=== PATIENT | female | born 1965 | race Hispanic/Latino ===

== ENCOUNTER 2017-08-08 13:06 | Emergency (ER) | payer BC ==
[2017-08-08 13:16] VITALS: BMI 25.7
[2017-08-08 13:23] VITALS: BP 120/75; RESP 18; O2SAT 97
--- NOTE | 2017-08-08 13:28 | ED PDOC ---
Arrival/HPI - General Chief Complaint: Chest Pain Time Seen by Provider: 08/08/17 13:27 Historian: Patient - History of Present Illness Narrative History of Present Illness (Text): 08/08/17 13:28 A 51 year old female, whose past medical history includes appendectomy and tonsillectomy, sent into the emergency department by PMD for intermittent midsternal chest pain since this morning. Patient describes her pain as a cramping sensation which radiates towards her back and lasts 1-2 minutes at a time. pt states pain is 5/10 at most; Patient is currently asymptomatic and denies any discomfort. She reports dealing with some stress at home. Patient denies any fever, chills, nausea, vomiting, abdominal pain, shortness of breath , syncope, headache, dizziness or any other complaints. pt was seen by dr Dyer in the office prior to ED arrival, directed to come to ED for eval and likely admission PMD: Dr. Dyer Time/Duration: Other (this morning) Symptom Course: Intermittent Quality: Cramping Severity Level: Moderate Context: Home, Work Past Medical History - Provider Review Nursing Documentation Reviewed: Yes - Travel History Have you recently traveled outside [place] w/in the past 3 mons?: No - Past History Past History: No Previous - Infectious Disease Hx of Infectious Diseases: None - Reproductive Menopause: Yes - Psychiatric Hx Substance Use: No Family/Social History - Physician Review Nursing Documentation Reviewed: Yes Family/Social History: CAD/NC Smoking Status: Never Smoked Hx Alcohol Use: No Hx Substance Use: No Hx Substance Use Treatment: No Allergies/Home Meds Allergies/Adverse Reactions: Allergies No Known Allergies Allergy (Verified 08/08/17 13:17) Home Medications: Home Meds Medication Instructions Recorded Confirmed No Known Home Med 08/08/17 08/08/17 Review of Systems - Physician Review All systems were reviewed & negative as marked: Yes - Review of Systems Constitutional: absent: Fevers, Night Sweats Eyes: Normal Respiratory: absent: SOB Cardiovascular: Chest Pain (radiating to back). absent: Syncope Gastrointestinal: absent: Abdominal Pain, Nausea, Vomiting Genitourinary Female: Normal Musculoskeletal: Normal Skin: Normal Neurological: absent: Headache, Dizziness Endocrine: Normal Hemo/Lymphatic: Normal Psychiatric: Normal Physical Exam Vital Signs Reviewed: Yes Vital Signs Temp Pulse Resp BP Pulse Ox 08/08/17 13:21 98.0 F 71 18 120/75 97 08/08/17 13:10 98 F 67 18 120/75 97 Temperature: Afebrile Blood Pressure: Normal Pulse: Regular Respiratory Rate: Normal Appearance: Positive for: Well-Appearing, Non-Toxic, Comfortable, Other (NAD, resting in bed, alert/awake, GCS = 15, oriented x 3, uncomfortable) Pain Distress: None Mental Status: Positive for: Alert and Oriented X 3 - Systems Exam Head: Present: Atraumatic, Normocephalic Pupils: Present: PERRL, Other (no nystagmus, no photophobia, sclera anicteric) Extroacular Muscles: Present: EOMI Conjunctiva: Present: Normal Ears: Present: Normal Mouth: Present: Moist Mucous Membranes, Normal Teeth, Other (no drooling/stridor , no exudate/lesions, no dysphonia, uvula/tongue are midline) Pharnyx: Present: Normal Nose (External): Present: Atraumatic Nose (Internal): Present: Normal Inspection Neck: Present: Normal Range of Motion, Trachea Midline. No: MIDLINE TENDERNESS Respiratory/Chest: Present: Clear to Auscultation, Good Air Exchange, Other ( CTA b/l, no w/r/r). No: Respiratory Distress, Accessory Muscle Use, Tender to Palpation Cardiovascular: Present: Regular Rate and Rhythm, Normal S1, S2. No: Murmurs Abdomen: Present: Normal Bowel Sounds, Other (well nourished female, no focal tenderness, no root's sign, no mcburney's point tenderness). No: Tenderness, Distention, Peritoneal Signs Back: Present: Normal Inspection. No: Midline Tenderness Upper Extremity: Present: Normal Inspection, Normal ROM, NORMAL PULSES, Neurovascularly Intact, Capillary Refill < 2s. No: Cyanosis, Edema Lower Extremity: Present: Normal Inspection, NORMAL PULSES, Normal ROM, Neurovascularly Intact, Capillary Refill < 2 s. No: Edema Neurological: Present: GCS=15, CN II-XII Intact, Speech Normal Skin: Present: Warm, Dry, Normal Color. No: Rashes Psychiatric: Present: Alert, Oriented x 3, Normal Insight, Normal Concentration Medical Decision Making ED Course and Treatment: 08/08/17 13:28 Impression: r/o ACS A 51 year old female with intermittent midsternal chest pain, currently asymptomatic. Plan: -- Chest xray -- EKG -- Labs -- Urinalysis -- Aspirin -- Reassess and disposition Progress Notes: 08/08/[address] Dyer, would like to admit patient pt is made aware of her medical results pt refused admission/obs i spoke to patient regarding dr dyer's concern and recommendation for admission, pt refused pt states she WILL NOT stay/be admitted to the hospital pt would like to leave AMA pt states she will see her doctor/cardiologists Pt is aware that potential life-threatening illness remains and pt can lose limb /or worse case, can Pt is aware that if she changes her mind, she is encouraged to return to ED immediately for further care/management pt is encouraged outpt f/u immediately pt expressed understanding 08/08/[address] Dyer is aware that pt is leaving AMA Re-evaluation Time: 14:30 Reassessment Condition: Improved - Lab Interpretations Lab Results: 08/08/17 13:40 08/08/17 13:40 Lab Results 08/08/17 14:25: Urine Color Yellow, Urine Appearance Clear, Urine pH 6.0, Ur Specific [place] 1.010, Urine Protein Negative, Urine Glucose (UA) Negative, Urine Ketones Negative, Urine Blood Negative, Urine Nitrate Negative, Urine Bilirubin Negative, Urine Urobilinogen 0.2, Ur Leukocyte Esterase Moderate H, Urine RBC 0 - 2, Urine WBC 5 - 10, Ur Epithelial Cells 4 - 5, Amorphous Sediment Few, Urine Bacteria Many 08/08/17 13:40: Sodium 144, Potassium 3.7, Chloride 105, Carbon Dioxide 28, Anion Gap 15, BUN 17, Creatinine 0.7, Est GFR ( Amer) > 60, Est GFR (Non- Af Amer) > 60, Random Glucose 89, Calcium 9.7, Magnesium 2.0, Total Bilirubin 0.5, AST 47 H, ALT 46, Alkaline Phosphatase 56, Lactate Dehydrogenase 461, Total Creatine Kinase 226, Troponin I < 0.01, Total Protein 7.4, Albumin 4.3, Globulin 3.1, Albumin/Globulin Ratio 1.4, Lipase 100 08/08/17 13:40: WBC 6.3, RBC 4.31, Hgb 13.0, Hct 40.9, MCV 94.9, MCH 30.2, MCHC 31.8, RDW 12.6, Plt Count 194, MPV 9.6, Gran % 55.5, Lymph % (Auto) 37.6 H, [place] % (Auto) 5.9, Eos % (Auto) 0.8 L, Baso % (Auto) 0.2, Gran # 3.51, Lymph # ( Auto) 2.4, [place] # (Auto) 0.4, Eos # (Auto) 0.1, Baso # (Auto) 0.01 I have reviewed the lab results: Yes Interpretation: All labs normal - RAD Interpretation Narrative RAD Interpretations (Text): 08/08/17 23:42 pt refused - EKG Interpretation EKG Interpretation (Text): 08/08/17 1400 NSR at 70 bpm, normal axis, no ectopy, inverted T in leads V1, no st-t changes, BORDERLINE EKG; no old ekg to compare with Interpreted by ED Physician: Yes Type: 12 lead EKG Comparison: No previous EKG avail. - Medication Orders Current Medication Orders: Discontinued Medications Aspirin (Ecotrin) 81 mg PO STAT STA Stop: 08/08/17 13:29 Last Admin: 08/08/17 13:50 Dose: 81 mg - Scribe Statement The provider has reviewed the documentation as recorded by the Jay Box Provider Scribe Attestation: All medical record entries made by the Scribe were at my direction and personally dictated by me. I have reviewed the chart and agree that the record accurately reflects my personal performance of the history, physical exam, medical decision making, and the department course for this patient. I have also personally directed, reviewed, and agree with the discharge instructions and disposition. Disposition/Present on Arrival - Present on Arrival Any Indicators Present on Arrival: No History of DVT/PE: No History of Uncontrolled Diabetes: No Urinary Catheter: No History of Decub. Ulcer: No History Surgical Site Infection Following: None - Disposition Have Diagnosis and Disposition been Completed?: Yes Diagnosis: Chest pain with minimal risk of acute coronary syndrome Disposition: AGAINST MEDICAL ADVICE Disposition Time: 14:36 Patient Plan: Discharge Condition: STABLE Discharge Instructions (ExitCare): Chest Pain (ED) Print Language: WELSH Additional Instructions: you are leaving against medical advice potential life-threatening illness remains and pt can lose limb/or worse case, can you are to see your doctor as soon as possible if you change your mind, you are encouraged to return to ED immediately for further care/management Referrals: Sharon Niño MD [Primary Care Provider] - Follow up with primary Arleen Dyer MD [Staff Provider] - Follow up with primary Moira Horvath MD [Staff Provider] - Follow up with primary Forms: [employer])
[2017-08-08 13:33] VITALS: PULSE 71; TEMP 98
[2017-08-08 13:56] LABS: BASO # 0.01 K/mm3 (0.0-2.0); BASO % 0.2 % (0.0-3.0); EOS # 0.1 (0.0-0.7); EOS % 0.8 % (1.5-5.0); GRAN # 3.51 (1.4-6.5); GRAN % 55.5 % (50.0-68.0); LYMPH # 2.4 (1.2-3.4); LYMPH % 37.6 % (22.0-35.0); MEAN CELL VOLUME 94.9 fl (80.0-105.0); MEAN CORPUSCULAR HEMOGLOBIN 30.2 pg (25.0-35.0); MEAN CORPUSCULAR HGB CONC 31.8 g/dl (31.0-37.0); MEAN PLATELET VOLUME 9.6 fl (7.0-11.0); MONO # 0.4 (0.1-0.6); MONO % 5.9 % (1.0-6.0); RBC 4.31 10^6/uL (3.5-6.1); RED CELL DISTRIBUTION WIDTH 12.6 % (11.5-14.5); WHITE BLOOD COUNT 6.3 10^3/ul (4.5-11.0)
[2017-08-08 14:10] LABS: ALB/GLOB RATIO 1.4 (1.1-1.8); ALBUMIN 4.3 g/dL (3.0-4.8); ALT/SGPT 46 U/L (7-56); AST/SGOT 47 U/L (14-36); BLOOD UREA NITROGEN 17 mg/dL (7-21); CALCIUM 9.7 mg/dL (8.4-10.5); GFR AFRICAN-AMERICAN > 60; GFR NON-AFRICAN AMERICAN > 60; LIPASE 100 U/L (23-300)
[2017-08-08 14:21] LABS: TROPONIN I < 0.01 ng/mL
[2017-08-08 14:41] LABS: URINE BILIRUBIN NEGATIVE (NEGATIVE); URINE BLOOD NEGATIVE (NEGATIVE); URINE GLUCOSE (UA) NEGATIVE (NEGATIVE); URINE LEUKOCYTE ESTERASE MODERATE Leu/uL (NEGATIVE); URINE NITRATE NEGATIVE (NEGATIVE); URINE PROTEIN NEGATIVE mg/dL (<30 mg/dL); URINE UROBILINOGEN 0.2 E.U./dL (<1 E.U./dL)
[2017-08-08 14:44] LABS: URINE APPEARANCE CLEAR (CLEAR); URINE COLOR YELLOW (YELLOW)
[2017-08-08 15:07] LABS: URINE RBC 0 - 2 /hpf (0-2)
[2017-08-08 15:08] LABS: URINE AMORPHOUS SEDIMENT FEW; URINE BACTERIA MANY (NEG)
--- NOTE | 2017-08-09 02:33 | CARD ---
APPROVED REPORT EKG Measurement Heart [id number] <Conclusion> Normal sinus rhythm Nonspecific ST abnormality Abnormal ECG
== END 2017-08-08 14:45 | disposition left against medical advice (07) ==
LOC: ED 13:06
DX: R07.9 Chest pain, unspecified (principal)

== ENCOUNTER 2018-06-25 07:52 | Day surgery (SDC) | payer BC ==
[2018-06-25 08:26] VITALS: TEMP 97.8
[2018-06-25] MEDS ORDERED: Propofol 10 mg/ml Inj (20 ML) ONE (09:27)
[2018-06-25] MEDS ORDERED: Sodium Chloride 0.9% 1,000 ML IV SCH (09:30)
[2018-06-25 10:39] VITALS: PULSE 56; O2SAT 100
[2018-06-25 11:11] VITALS: RESP 116
[2018-06-25 13:48] VITALS: BP 107/61
== END 2018-06-25 11:48 | disposition home or self-care (01) ==
LOC: ENDO 07:52
PROVIDERS: ATTEND Internal Medicine Gastroenterology
DX: R10.12 Left upper quadrant pain (principal); K64.8 Other hemorrhoids; K64.4 Residual hemorrhoidal skin tags; K56.2 Volvulus
CPT/HCPCS: 45378; J2001; J2704; J7030; J7040